=== PATIENT | male | born 1950 | race Caucasian/White ===

== ENCOUNTER → 2016-03-23 | Outpatient (REF) | payer MEDICARE, MEDICAID ==
[~2016-03-23] MED LIST: /RISE30TA; ACET65TA; ACTI300C PO; ACTO30TA; ACTO30TA7 PO; ALBU17IN2; ALLO100T PO; BISA10SU4 PR; BREO1INH INH; BUME2TAB PO; COLA100C PO; DEMA1TAB4 PO; DEMA20TA6 PO; ENEMENE6 PR; FERR325T PO; FINA5TAB2 PO; FLOM5CAP PO; FURO40TA2; GLYB2.5T6; HYDR10TA2; HYDR12CA PO; HYDR25TA7; K-TA10TA2 PO; LANTINJ4 SC; LISI10TA4; LORA10TA2 PO; MECL-68 PO; METO5TA PO; METO5TAB2 PO; MILKSUS PO; Mycostatin TOP; NAPR-239; NOVOINJ3 SC; PENI50TA PO; PREG50CA; PROA1AER INH; ROBISYP5 PO; SENN8.6C PO; SIMV20TA2; SIMV20TA2 PO; SPIR1CAP INH; TYLE325T5 PO; VITA50003 PO; ZOFR20TA PO
[2016-03-23 08:59] LABS: ALBUMIN 1.3 GM/DL (3.2-5.2); CALCIUM LEVEL 7.2 MG/DL (8.8-10.2); CREATININE FOR GFR 2.85 MG/DL (0.70-1.30); GLOMERULAR FILTRATION RATE 23.8 (>49); PHOSPHORUS LEVEL 3.3 MG/DL (2.5-4.9)
== END ==
LOC: SKLAB2 07:00
PROVIDERS: ATTEND Family Medicine
DX: R60.9 Edema, unspecified (principal); N18.9 Chronic kidney disease, unspecified; R41.82 Altered mental status, unspecified

== ENCOUNTER → 2016-03-30 | Outpatient (REF) | payer MEDICARE, MEDICAID ==
[2016-03-30 09:27] LABS: ALBUMIN 1.3 GM/DL (3.2-5.2); CALCIUM LEVEL 7.5 MG/DL (8.8-10.2); CREATININE FOR GFR 2.87 MG/DL (0.70-1.30); GLOMERULAR FILTRATION RATE 23.6 (>49); PHOSPHORUS LEVEL 2.7 MG/DL (2.5-4.9); POTASSIUM SERUM 3.3 MEQ/L (3.5-5.1)
== END ==
LOC: SKLAB2 08:00
PROVIDERS: ATTEND Family Medicine
DX: R60.0 Localized edema (principal)

== ENCOUNTER → 2016-04-06 | Outpatient (REF) | payer MEDICARE, MEDICAID ==
[2016-04-06 08:18] LABS: ALBUMIN 1.4 GM/DL (3.2-5.2); CALCIUM LEVEL 7.3 MG/DL (8.8-10.2); CREATININE FOR GFR 2.22 MG/DL (0.70-1.30); GLOMERULAR FILTRATION RATE 31.7 (>49); PHOSPHORUS LEVEL 3.2 MG/DL (2.5-4.9); POTASSIUM SERUM 3.2 MEQ/L (3.5-5.1)
== END ==
LOC: SKLAB2 07:00
PROVIDERS: ATTEND Family Medicine
DX: R60.9 Edema, unspecified (principal)

== ENCOUNTER → 2016-04-15 | Outpatient (REF) | payer MEDICARE, MEDICAID ==
[2016-04-15 14:29] LABS: MEAN CORPUSCULAR HEMOGLOBIN 27.6 pg (27.0-33.0); MEAN CORPUSCULAR HGB CONC 32.6 g/dl (32.0-36.5); MEAN CORPUSCULAR VOLUME 84.7 fl (80.0-96.0); RED CELL DISTRIBUTION WIDTH 17.6 % (11.5-14.5); WHITE BLOOD COUNT 5.1 K/mm3 (4.0-10.0)
[2016-04-15 14:52] LABS: ALBUMIN 1.7 GM/DL (3.2-5.2); ALBUMIN/GLOBULIN RATIO 0.35 (1.00-1.93); BILIRUBIN,TOTAL 0.4 MG/DL (0.2-1.0); CALCIUM LEVEL 7.6 MG/DL (8.8-10.2); CREATININE FOR GFR 2.35 MG/DL (0.70-1.30); GLOMERULAR FILTRATION RATE 29.7 (>49); POTASSIUM SERUM 3.8 MEQ/L (3.5-5.1); TOTAL PROTEIN 6.5 GM/DL (6.4-8.2)
== END ==
LOC: SKLAB2 13:48
PROVIDERS: ATTEND Family Medicine
DX: G93.40 Encephalopathy, unspecified (principal)

== ENCOUNTER 2016-04-16 08:37 | Outpatient (CLI) | payer MEDICARE, MEDICAID ==
[~2016-04-16] VITALS: Ht 172.7 cm; Wt 159.3 kg
[2016-04-16 09:14] VITALS: BP 178/86
== END 2016-04-16 16:15 ==
LOC: M OPCLI4PR 08:37 → M ALC 08:37 → M OPCLI4PR 16:15
PROVIDERS: ATTEND Family Medicine
DX: D64.9 Anemia, unspecified (principal); N18.9 Chronic kidney disease, unspecified

== ENCOUNTER → 2016-04-16 | Outpatient (REF) | payer MEDICARE, MEDICAID | LOC: SKLAB2 07:37 | PROVIDERS: ATTEND Family Medicine | DX: N18.9 Chronic kidney disease, unspecified (principal); D64.9 Anemia, unspecified | CPT/HCPCS: 86920; P9016 ==

== ENCOUNTER → 2016-04-17 | Outpatient (REF) | payer MEDICARE, MEDICAID | LOC: SKLAB2 07:00 | PROVIDERS: ATTEND Family Medicine | DX: D64.9 Anemia, unspecified (principal) ==

== ENCOUNTER → 2016-04-19 | Outpatient (REF) | payer MEDICARE, MEDICAID | LOC: SKLAB2 07:00 | PROVIDERS: ATTEND Family Medicine | DX: D64.9 Anemia, unspecified (principal) ==

== ENCOUNTER → 2016-04-21 | Outpatient (REF) | payer MEDICARE, MEDICAID | LOC: SKLAB2 07:00 | PROVIDERS: ATTEND Family Medicine | DX: D64.9 Anemia, unspecified (principal) ==

== ENCOUNTER → 2016-04-22 | Outpatient (REF) | payer MEDICARE, MEDICAID | LOC: SKLAB2 07:00 | PROVIDERS: ATTEND Family Medicine | DX: D64.9 Anemia, unspecified (principal) ==

== ENCOUNTER → 2016-04-24 | Outpatient (REF) | payer MEDICARE, MEDICAID | LOC: SKLAB2 07:00 | PROVIDERS: ATTEND Family Medicine | DX: D64.9 Anemia, unspecified (principal); E11.9 Type 2 diabetes mellitus without complications ==

== ENCOUNTER → 2016-04-27 | Outpatient (REF) | payer MEDICARE, MEDICAID | LOC: SKLAB2 07:00 | PROVIDERS: ATTEND Family Medicine | DX: D64.9 Anemia, unspecified (principal) ==

== ENCOUNTER → 2016-04-29 | Outpatient (REF) | payer MEDICARE, MEDICAID | LOC: SKLAB2 07:00 | PROVIDERS: ATTEND Family Medicine | DX: N18.9 Chronic kidney disease, unspecified (principal) ==

== ENCOUNTER → 2016-04-30 | Outpatient (REF) | payer MEDICARE, MEDICAID ==
[2016-04-30 14:47] LABS: BASO % 0.2 % (0.0-1.0); EOS # 3.5 K/mm3 (0.0-0.50); EOS % 30.9 % (0.0-3.0); LARGE UNSTAINED CELL # 0.1 K/mm3 (0.0-0.4); LARGE UNSTAINED CELL % 1.2 % (0.0-4.0); LYMPH % 7.4 % (24.0-44.0); MEAN CORPUSCULAR HEMOGLOBIN 27.4 pg (27.0-33.0); MEAN CORPUSCULAR VOLUME 85.9 fl (80.0-96.0); MONO # 0.6 K/mm3 (0.0-0.8); MONO % 4.8 % (0.0-5.0); NEUTROPHILS # 6.4 K/mm3 (1.8-7.7); NEUTROPHILS % 55.5 % (36.0-66.0); PLATELET COUNT, AUTOMATED 241 k/mm3 (150-450); RED CELL DISTRIBUTION WIDTH 18.3 % (11.5-14.5); WHITE BLOOD COUNT 11.4 K/mm3 (4.0-10.0)
[2016-04-30 14:53] LABS: ALBUMIN 1.8 GM/DL (3.2-5.2); ALBUMIN/GLOBULIN RATIO 0.35 (1.00-1.93); BILIRUBIN,TOTAL 0.4 MG/DL (0.2-1.0); CALCIUM LEVEL 8.6 MG/DL (8.8-10.2); CREATININE FOR GFR 3.61 MG/DL (0.70-1.30); GLOMERULAR FILTRATION RATE 18.1 (>49); POTASSIUM SERUM 3.6 MEQ/L (3.5-5.1); TOTAL PROTEIN 6.9 GM/DL (6.4-8.2)
== END ==
LOC: SKLAB2 13:51
PROVIDERS: ATTEND Family Medicine
DX: I50.9 Heart failure, unspecified (principal); D64.9 Anemia, unspecified; E55.9 Vitamin D deficiency, unspecified; E11.9 Type 2 diabetes mellitus without complications

== ENCOUNTER → 2016-05-01 | Outpatient (REF) | payer MEDICARE, MEDICAID ==
[2016-05-01 08:34] LABS: CALCIUM LEVEL 8.1 MG/DL (8.8-10.2); CREATININE FOR GFR 4.05 MG/DL (0.70-1.30); GLOMERULAR FILTRATION RATE 15.8 (>49); POTASSIUM SERUM 3.7 MEQ/L (3.5-5.1)
== END ==
LOC: SKLAB2 08:26
PROVIDERS: ATTEND Family Medicine
DX: E86.0 Dehydration (principal); I50.9 Heart failure, unspecified

== ENCOUNTER → 2016-05-02 | Outpatient (REF) | payer MEDICARE, MEDICAID ==
[2016-05-02 13:10] LABS: CALCIUM LEVEL 7.5 MG/DL (8.8-10.2); CREATININE FOR GFR 4.29 MG/DL (0.70-1.30); GLOMERULAR FILTRATION RATE 14.8 (>49); POTASSIUM SERUM 3.4 MEQ/L (3.5-5.1)
== END ==
LOC: SKLAB2 07:00
PROVIDERS: ATTEND Family Medicine
DX: E86.0 Dehydration (principal)

== ENCOUNTER → 2016-05-04 | Outpatient (REF) | payer MEDICARE, MEDICAID ==
[2016-05-04 08:58] LABS: BASO % 0.1 % (0.0-1.0); EOS % 7.1 % (0.0-3.0); LARGE UNSTAINED CELL # 0.2 K/mm3 (0.0-0.4); LARGE UNSTAINED CELL % 1.1 % (0.0-4.0); LYMPH # 0.8 K/mm3 (1.5-4.5); MEAN CORPUSCULAR HEMOGLOBIN 27.6 pg (27.0-33.0); MEAN CORPUSCULAR HGB CONC 32.4 g/dl (32.0-36.5); MEAN CORPUSCULAR VOLUME 85.4 fl (80.0-96.0); MONO # 0.5 K/mm3 (0.0-0.8); MONO % 3.7 % (0.0-5.0); NEUTROPHILS # 11.5 K/mm3 (1.8-7.7); PLATELET COUNT, AUTOMATED 167 k/mm3 (150-450); RED CELL DISTRIBUTION WIDTH 18.7 % (11.5-14.5); WHITE BLOOD COUNT 13.8 K/mm3 (4.0-10.0)
[2016-05-04 09:17] LABS: CALCIUM LEVEL 6.9 MG/DL (8.8-10.2); CREATININE FOR GFR 4.32 MG/DL (0.70-1.30); GLOMERULAR FILTRATION RATE 14.7 (>49); PERCENT SATURATION 19.7 % (19.7-37.4); POTASSIUM SERUM 3.7 MEQ/L (3.5-5.1)
== END | disposition home or self-care (01) ==
LOC: SKLAB2 07:00
PROVIDERS: ATTEND Family Medicine
DX: I50.33 Acute on chronic diastolic (congestive) heart failure (principal); E11.9 Type 2 diabetes mellitus without complications; E55.9 Vitamin D deficiency, unspecified

== ENCOUNTER → 2016-05-06 | Outpatient (REF) | payer MEDICARE, MEDICAID | END | disposition home or self-care (01) | LOC: SKLAB2 07:00 | PROVIDERS: ATTEND Family Medicine | DX: N18.3 Chronic kidney disease, stage 3 (moderate) (principal); E11.9 Type 2 diabetes mellitus without complications ==

== ENCOUNTER → 2016-05-08 | Outpatient (REF) | payer MEDICARE, MEDICAID | LOC: SKLAB2 08:00 | PROVIDERS: ATTEND Family Medicine | DX: N17.9 Acute kidney failure, unspecified (principal) ==

== ENCOUNTER → 2016-05-11 | Outpatient (REF) | payer MEDICARE, MEDICAID ==
[2016-05-11 10:35] LABS: CALCIUM LEVEL 7.4 MG/DL (8.8-10.2); CREATININE FOR GFR 2.98 MG/DL (0.70-1.30); GLOMERULAR FILTRATION RATE 22.6 (>49); POTASSIUM SERUM 3.4 MEQ/L (3.5-5.1)
== END ==
LOC: SKLAB2 08:00
PROVIDERS: ATTEND Family Medicine
DX: N18.9 Chronic kidney disease, unspecified (principal)

== ENCOUNTER → 2016-05-13 | Outpatient (REF) | payer MEDICARE, MEDICAID | LOC: SKLAB2 08:00 | PROVIDERS: ATTEND Family Medicine | DX: N18.9 Chronic kidney disease, unspecified (principal) ==

== ENCOUNTER → 2016-05-15 | Outpatient (REF) | payer MEDICARE, MEDICAID | LOC: SKLAB2 07:00 | PROVIDERS: ATTEND Family Medicine | DX: N18.9 Chronic kidney disease, unspecified (principal) ==

== ENCOUNTER → 2016-05-18 | Outpatient (REF) | payer MEDICARE, MEDICAID ==
[2016-05-18 10:17] LABS: CALCIUM LEVEL 7.5 MG/DL (8.8-10.2); CREATININE FOR GFR 2.36 MG/DL (0.70-1.30); GLOMERULAR FILTRATION RATE 29.5 (>49); POTASSIUM SERUM 4.5 MEQ/L (3.5-5.1)
== END ==
LOC: SKLAB2 08:00
PROVIDERS: ATTEND Family Medicine
DX: N18.9 Chronic kidney disease, unspecified (principal)

== ENCOUNTER → 2016-05-20 | Outpatient (REF) | payer MEDICARE, MEDICAID | LOC: SKLAB2 07:30 | PROVIDERS: ATTEND Family Medicine | DX: Z79.899 Other long term (current) drug therapy (principal) ==

== ENCOUNTER → 2016-07-08 | Outpatient (REF) | payer MEDICARE, MEDICAID ==
[~2016-07-08] MED LIST changes: -COLA100C PO; +COLA100C3 PO
--- NOTE | 2016-07-08 19:48 | ECGEPIP ---
Stationary ECG Study [facility] [place] Test Date: 2016-07-08 Pat Name: ISABELLA GONZALEZ Department: Room: - Gender: M Goat Farmer: [facility] : 1950 Requested By: Chaz Arechiga Order Number: [id number] Reading MD: Michele Vital Measurements Intervals [place] Rate: 80 P: -18 [place]: 205 QRS: 4 QRSD: 93 T: 28 QT: 358 QTc: 415 Interpretive Statements SINUS RHYTHM WITH FREQUENT SUPRAVENTRICULAR PREMATURE COMPLEXES Borderline prolonged [place] interval ANTEROSEPTAL MYOCARDIAL INFARCTION, OF INDETERMINATE AGE Increased ectopy when compared to tracing from 01-28-16 Baseline artifact Electronically Signed On 07-08-2016 19:48:28 EDT by Michele Vital
== END ==
LOC: SKLAB2 10:41
PROVIDERS: ATTEND Family Medicine
DX: I49.9 Cardiac arrhythmia, unspecified (principal)

== ENCOUNTER → 2016-07-13 | Outpatient (REF) | payer MEDICARE, MEDICAID ==
--- NOTE | 2016-07-13 21:22 | ECGEPIP ---
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
== END ==
LOC: SKLAB2 08:21
PROVIDERS: ATTEND Family Medicine
DX: Z51.81 Encounter for therapeutic drug level monitoring (principal); Z79.01 Long term (current) use of anticoagulants; I48.91 Unspecified atrial fibrillation